=== PATIENT | female | born 1970 | race African-American/Black ===

== ENCOUNTER 2017-02-13 11:56 | Emergency (ER) | payer OTHER ==
--- NOTE | ~2017-02-13 | MR133 ---
[facility] A Service of [facility] RADIOLOGY TEXT RESULTS PATIENT: HOA JAIN LOCATION: [facility] : 72 UNIT #: [id number] AGE: [address]: Norberto Smith DO SEX: F ORDER DR: [id number] [facility] [address] [place], [place] [address] [id number] E MR#: [id number] Acc #: [id number] NAME: HOA JAIN : 1970 SEX: F STUDY DATE/TIME: 02/13/2017 16:59 UNIT: [facility] ROOM: STUDY DESCRIPTION: MR MRA Neck WWo Contrast Attending Physician: Norberto Smith D.O. Ordering Physician: Norberto Smith D.O. Primary Care Physician: No Primary Care Physician MRI CENTER REPORT This report is preliminary unless electronic signature is present. EXAM Neck MRA without 02/13/2017 HISTORY Pain, hypertension, diabetes, right eye pain started this morning with migraine type pain. COMMENTS MR angiography performed neck vessels prior to and during the intravenous administration 20 mL of MultiHance. There is a separate brain MRI and separate intracranial MR angiogram. FINDINGS By NASCET criteria, there is 0% stenosis at the left carotid bifurcation. There is a bovine origin left common carotid artery. Left vertebral artery is widely patent. By NASCET criteria there is 0% stenosis at the right carotid bifurcation. The right vertebral artery is widely patent. No hemodynamically significant stenosis is suspected at the origins of the great vessels from the arch. IMPRESSION By NASCET criteria 0% stenosis at either carotid bifurcation. Both vertebral arteries are patent in the neck. They are fairly codominant. STAT * RESULT Dictated by... Alice Tucker M.D. THIS IS AN ELECTRONICALLY VERIFIED REPORT [facility] A Service of [facility] RADIOLOGY TEXT RESULTS PATIENT: HOA JAIN LOCATION: [facility] : 72 UNIT #: [id number] AGE: [address]: Norberto Smith DO SEX: F ORDER DR: Alice Tucker M.D. at 02/13/2017 5:54 PM Vance TD: 02/13/2017 17:44 JOB #: [id number] MRI CENTER REPORT Page 1 of 1 COPY
--- NOTE | ~2017-02-13 | MR122 ---
[facility] A Service of [facility] & [facility] RADIOLOGY TEXT RESULTS PATIENT: HOA JAIN LOCATION: [facility] : 72 UNIT #: [id number] AGE: [address]: Norberto Smith DO SEX: F ORDER DR: [id number] [facility] [address] [place], [place] [address] [id number] E MR#: [id number] Acc #: [id number] NAME: HOA JAIN : 1970 SEX: F STUDY DATE/TIME: 02/13/2017 16:24 UNIT: [facility] ROOM: STUDY DESCRIPTION: MR MRA Head Wo Contrast Attending Physician: Norberto Smith D.O. Ordering Physician: Norberto Smith D.O. Primary Care Physician: No Primary Care Physician MRI CENTER REPORT This report is preliminary unless electronic signature is present. EXAM MRA head without. HISTORY Severe headache, right eye pain, migraine type, started this morning. COMMENTS MR angiography performed bois forte of Winter vasculature without contrast. There is no comparison study of the intracranial vessels. There is no intracranial vascular cutoff. Possible narrowing at the origin of the right-sided A1 vessel and the right M2 vessel. These areas could be real or artifactual. Otherwise, no focal central stenosis is suspected. No definite anterior communicator. No definite posterior communicator. IMPRESSION 1. No intracranial vascular cutoff is appreciated. Nothing to suggest intracranial aneurysm allowing for technical limitation of MR angiography for evaluation for small aneurysm. 2. Possible narrowing at the origin of the right A1 vessel and the right M2 branch. Unfortunately this could be real or artifactual. Otherwise, no focal central stenosis is appreciated. STAT * RESULT Dictated by... Alice Tucker M.D. THIS IS AN ELECTRONICALLY VERIFIED REPORT Alice Tucker M.D. at 02/13/2017 5:54 PM SAC/js STS. [facility] A Service of [facility] & [facility] RADIOLOGY TEXT RESULTS PATIENT: HOA JAIN LOCATION: [facility] : 72 UNIT #: [id number] AGE: [address]: Norberto Smith DO SEX: F ORDER DR: TD: 02/13/2017 17:45 JOB #: [id number] MRI CENTER REPORT Page 1 of 1 COPY
--- NOTE | ~2017-02-13 | MR18 ---
[facility] A Service of [facility] & [facility] RADIOLOGY TEXT RESULTS PATIENT: HOA JAIN LOCATION: [facility] : 72 UNIT #: [id number] AGE: [address]: Norberto Smith DO SEX: F ORDER DR: [id number] [facility] [address] [place], [place] [address] [id number] E MR#: [id number] Acc #: [id number] NAME: HOA JAIN : 1970 SEX: F STUDY DATE/TIME: 02/13/2017 12:44 UNIT: [facility] ROOM: STUDY DESCRIPTION: MR Brain Wo Contrast Attending Physician: Norberto Smith D.O. Ordering Physician: Norberto Smith D.O. Primary Care Physician: Primary Care Physician No MRI CENTER REPORT This report is preliminary unless electronic signature is present. EXAM Brain MRI without HISTORY Neurologic deficit, hypertension, has eye pain that started this morning, like a migraine. Diabetes. Patient declined to pursue the MR angiogram of the head or neck. Patient had an MRI of the lumbar spine at [facility] yesterday per given history. I do not have access to that study. COMPARISON There is a head CT for comparison from 2013. FINDINGS There is no evidence for acute ischemic insult on the diffusion series. Midline structures are unremarkable. There is no MRI evidence for intracranial hemorrhage. No extraaxial fluid collection. The ventricles are normal in size and configuration. The cobb-white junction is well-maintained. The mastoid air cells are clear. There is considerable paranasal sinus disease with mucosal thickening in the frontal sinuses, ethmoid air cells, sphenoid sinuses and maxillary sinuses. There are small air-fluid levels in the bilateral maxillary sinuses and air-fluid levels in the bilateral sphenoid sinuses, larger on the left than the right. The patient has had prior paranasal sinus surgery at least with partial ethmoidectomies apparent. Please correlate for clinical findings of acute sinusitis. This could certainly be related to headache and eye pain presentation. Mild prominence of the perivascular spaces. There is minimal periventricular white matter high-signal intensity on FLAIR imaging within the range of normal for age group. No intracranial mass effect. IMPRESSION 1. No evidence for a recent ischemic insult on the diffusion series. 2. Brady sinusitis with air-fluid levels in the maxillary sinuses and STS. [facility] A Service of [facility] & [facility] RADIOLOGY TEXT RESULTS PATIENT: HOA JIAN LOCATION: [facility] : 72 UNIT #: [id number] AGE: [address]: Norberto Smith DO SEX: F ORDER DR: sphenoid sinuses consistent with a component of acute sinusitis. STAT * RESULT Dictated by... Alice Tucker M.D. THIS IS AN ELECTRONICALLY VERIFIED REPORT Alice Tucker M.D. at 02/13/2017 5:53 PM SAC/to TD: 02/13/2017 14:17 JOB #: [id number] MRI CENTER REPORT Page 1 of 1 COPY
[~2017-02-13 11:56] MED LIST: ALBUTEROL17 GM INH; BENZONATATE PO; CAPOZIDE PO; CATAPRES-TTS-30.3 MG EXT; LYRICA PO; METFORMIN HCL1000 M1 PO; NORCO 10/3251 TAB DOB; PREDNISONE PO; PRILOSEC PO; VASOTEC20 MG PO; VIBRAMYCIN100 M1 PO
[2017-02-13 12:12] LABS: BASOPHIL% 0.8 % (0-2.5); EOSINOPHIL# 0.1 X10e3 (0-0.7); EOSINOPHIL% 2.6 % (0.0-7.0); HEMATOCRIT 35.8 % (35.0-45.0); HEMOGLOBIN 11.5 gm/dL (12.0-16.0); LYMPHOCYTE# 1.4 X10e3 (1.0-3.5); LYMPHOCYTE% 27.7 % (17.0-45.0); MEAN CELL VOLUME 91.1 FL (83-96); MEAN CORPUSCULAR HEMOGLOBIN 29.4 PG (28-34); MEAN CORPUSCULAR HGB CONC 32.3 g/dL (30-36); MEAN PLATELET VOLUME 7.5 FL (6.5-11.5); MONOCYTE# 0.7 X10e3 (0-1.0); MONOCYTE% 13.5 % (3.0-12.0); NEUTROPHIL# 2.9 X10e3 (1.5-7.1); NEUTROPHIL% 55.4 % (40-75); PLATELET COUNT 279 X10e3 (140-420); RED BLOOD COUNT 3.93 X10e (3.90-5.30); RED CELL DISTRIBUTION WIDTH 14.9 % (11.0-15.5); WHITE BLOOD COUNT 5.2 X10e3 (4.0-10.5)
[2017-02-13 12:14] LABS: DIFF IND NO
[2017-02-13 12:41] LABS: ALBUMIN SERUM 3.9 g/dL (3.5-5.0); BILIRUBIN, DIRECT 0.1 mg/dL (0.0-0.2); BILIRUBIN,INDIRECT 0.4 mg/dL (0.0-0.9); BILIRUBIN,TOTAL 0.5 mg/dL (0.2-2.0); BUN/CREATININE RATIO 7.14; CALCIUM SERUM 8.9 mg/dL (8.4-10.2); CREATININE SERUM 0.7 mg/dL (0.6-1.4); GLOM FILT RATE Estimated 121.3 mL/min (>60); POTASSIUM 3.6 mmol/L (3.5-5.1); PROTEIN TOTAL SERUM 7.2 g/dL (6.0-8.3)
[2017-02-13 14:23] LABS: URINE SOURCE CLEAN CATCH
[2017-02-13 14:31] LABS: URINE APPEARANCE CLEAR; URINE BILIRUBIN NEG (NEG); URINE BLOOD TRACE (NEG); URINE COLOR YELLOW; URINE GLUCOSE NEG (NEG); URINE KETONE NEG (NEG); URINE LEUKOCYTE ESTERASE NEG (NEG); URINE NITRATE NEG (NEG); URINE PH 6.5 (5-8); URINE PROTEIN NEG (NEG); URINE SPECIFIC GRAVITY 1.005 (1.003-1.035); URINE UROBILINOGEN 0.2 MG/DL (NEG)
[2017-02-13 14:36] LABS: CULTURE INDICATED? YES; URINE BACTERIA AUWI 1+ (NEGATIVE); URINE SQUAMOUS EPITHELIAL CELL NONE SEEN /[HPF]; UWBCS1 AUWI 0-2 (0-5)
[2017-02-13 15:26] LABS: POC - CREATININE 0.66 mg/dL (0.44-1.03); POC - GFR >60.0 mL/min (>60)
== END 2017-02-13 19:07 | disposition home or self-care (01) ==
LOC: CED 11:56
PROVIDERS: Emergency Medicine
DX: R51 Headache (principal); I10 Essential (primary) hypertension; J45.909 Unspecified asthma, uncomplicated; Z98.51 Tubal ligation status; Z98.890 Other specified postprocedural states
CPT/HCPCS: 36415; 70544; 70549; 70551; 80048; 80076; 81003; 82565; 85025; 85652; 86140; 87086; 96361; 96374; 96375; 99284; A9577; J1200; J2060; J2765